=== PATIENT | female | born 1985 | race Caucasian/White ===

== ENCOUNTER 2016-10-01 21:16 | Emergency (ER) | payer OTHER ==
[2016-10-01] MEDS ORDERED: BACITRACIN 0.9 GM PACKET OINT TOPICAL ONE (21:45)
[2016-10-01 21:53] VITALS: RESP 20; TEMP 98.2
[2016-10-01] MEDS ORDERED: valACYclovir Tab 500 MG TAB PO ONE (22:01)
[2016-10-01] MEDS ORDERED: CEPHALEXIN 500 MG CAPSULE PO SCH (22:15)
--- NOTE | 2016-10-02 04:36 | PDOC ---
Lower Extremity Problem HPI - General Chief Complaint: Lower Extremity Problem/Injury Stated Complaint: Left leg wound Date Seen by Provider: 10/01/16 Time Seen by Provider: 21:25 Source: POSITIVE: Patient Exam Limitations: POSITIVE: No limitations, Clinical condition - History of Present Illness Initial Comments: The patient is a 31 year old female. She complaines of a 4 day history of a cluster of painful "sores" just distal to the medial aspect of the right knee. She has since developed erythema surroundinf these lesions and lymphangitis streaking ascending up from these lesions. Patient states thes lesions have been recurring about twice a year since 2008. Lesions seem to be precipitated by stress. She has had arthroscopic surgery to this knee. No fevers or chills. No mucosal lesions. Body Location Affected: REPORTS: Lower Extremity (R) Timing: REPORTS: Abrupt Duration: <1 week (approximately four days) Severity: Moderate Recent Injury: REPORTS: No Context of Injury: DENIES: Fall, Twist, Direct Blow, Incision, Burn, Crush, Stab , Prolonged Pressure on Ext, Other Location at Time of Onset: REPORTS: Home Quality: REPORTS: "Pain" Modifying Factors: REPORTS: Other (exacerbated by direct palpation) Associated Symptoms: DENIES: Chest Pain, Shortness of Breath, Rapid Heart Rate, Fainting, Other Similar Symptoms Previously: Yes (approximately twice a year since 2008) Recent Care Received: REPORTS: Denies Any Prior Injuries Related to Current Complaint?: No - Patient Home Medications Home Medications: Home Medications Acetaminophen [Tylenol] 325 mg PO PRN tab 03/30/14 Ibuprofen 1 tab PO PRN tab 01/19/15 Cephalexin [Keflex] 500 mg PO Q6H #38 cap 10/01/16 Valacyclovir HCl [Valtrex] 1,000 mg PO BID #13 tab 10/01/16 Valacyclovir HCl [Valtrex] 1,000 mg PO Q8H #20 tab 10/01/16 - Patient Allergies Allergies/Adverse Reactions: Allergies Allergy/AdvReac Type Severity Reaction Status Date / Time No Known Allergies Allergy Verified 10/01/16 21:23 Past Medical History - heen HEENT History: Denies History Cardiovascular History: Denies History Respiratory History: Denies History Gastrointestinal History: Denies History Genitourinary History: Denies History Endocrine History: Denies History Musculoskeletal History: Other (please comment) Additional Musculoskeletal History: Hx of bilateral knee scopes Neurological History: Seizures Blood Disorders: Denies History Psychiatric History: Denies History History of Sexually Transmitted Diseases: No Female Reproductive History: Denies History Obstetrical History: Denies History Cancer History: Denies History In Past Year Been Physically Harmed or Verbally Threatened: No History of MDRO: No History of Other Communicable Diseases: No Tobacco Use: Current Every Day Smoker Alcohol Use: Rarely Substance Use Type: None Previous Surgical History: No Significant Family History: No pertinent family hx Past Medical History Reviewed: Reviewed - No Changes ROS - Limitations ROS Limitations: No Limitations Constitution: REPORTS: Denies Symptoms Cardiovascular: REPORTS: Denies Cardiac Symptoms Respiratory: REPORTS: Denies Resp Symptoms Neurological: REPORTS: Denies Neuro Symptoms Gastrointestinal: REPORTS: Denies GI Symptoms Endocrine: REPORTS: Denies Symptoms Musculoskeletal: REPORTS: Denies MS Symptoms Genitourinary: REPORTS: Denies Symptoms Eyes: REPORTS: Denies Symptoms ENT: REPORTS: Denies Symptoms Skin: REPORTS: Skin Lesions (cluster of vesicular lesions just below medial aspect of right knee, very suggestive of HSV with associated surrounding cellulitis and lymphangitis) Lympathic: DENIES: Denies Lympathic Symptoms (lymphangitic streaking; see diagram) Immunologic: POSITIVE: Denies Symptoms Psychiatric: POSITIVE: Denies Psych Symptoms Lower Ext Problem Exam - General Appearance General Appearance: POSITIVE: Alert, Cooperative, No Acute Distress, No Evidence of Trauma - Extremities Lower Extremity: POSITIVE: Other (vesicular alan lesions with associated cellulitis and lymphangitis as above; see diagram) Joint Exam: POSITIVE: Joints Normal, Normal ROM, Normal Gait, Normal Weight Bearing Vascular: POSITIVE: No Vascular Compromise, Full Pulses, Equal Pulses - Neuro / Psych Neuro/Psych: POSITIVE: Sensation Normal, Motor Normal, Oriented to Person, Oriented to Place, Oriented to Time, 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 Nml, Pharynx Inspect. Nml, PERRL, EOMI - Respiratory / CVS Respiratory / CVS: POSITIVE: No Respiratory Distress, Breath Sounds Normal, Regular Rate/Rhythm, Heart Sounds Normal Peripheral Pulses: Radial (R): 2+, Radial (L): 2+ - Abdomen Abdomen: Soft: (All Quadrants), Normal Bowel Sounds: (All Quadrants), Denies Tenderness: (All Quadrants), No Splenomegaly: (All Quadrants), No Hepatomegaly: (All Quadrants), No Guarding: (All Quadrants), No Rebound: (All Quadrants), No Palpable Pulse: (All Quadrants), No Palpabale Mass: (All Quadrants), No Distention: (All Quadrants), No Rigidity: (All Quadrants) Images - Lower Extremities Lower Extremities: 1 - cluster of vesicles 2 - erythema and tenderness 3 - lymphangitis Lower Ext Problem Progress - Results Reviewed by me Lab Results:: herpes culter and aerobic bacterial cultures taken of unruffed vesicles - Patient's Progress Pain Medication Addressed: POSITIVE: Yes (recommended advil or tylenol) School/Work Release Addressed: POSITIVE: Not Applicable Re-Examine Time: 22:00 Re-Examine Comment: wound cleanses and Bacitracin dressing placed Status: POSITIVE: Unchanged - Consult Counseled: POSITIVE: Patient, RE: DX, RE: Need for F/U Patient Care Time - Estimated PCT Patient Care Time (In Minutes): 25 Vital Signs - Recent Vital Signs Vital Signs: Vital Signs (Last 8 hours) Temp Pulse Resp BP Pulse Ox 10/01/16 21:21 98.2 F 107 H 20 121/86 96 - VS Reviewed Vital Signs Reviewed: Yes Discharge Clinical Impression: Herpes, Lymphangitis Discharge Disposition: Discharged to Home Condition: Good Prescriptions / Orders: Cephalexin [Keflex] 500 mg PO Q6H #38 cap Valacyclovir HCl [Valtrex] 1,000 mg PO BID #13 tab Valacyclovir HCl [Valtrex] 1,000 mg PO Q8H #20 tab Patient Instructions Given at Discharge: Shingles (ED), Cellulitis (ED) Additional Instructions: I believe that you probably have a recurring viral herpetic infection, similar to shingles. You have secondary inflammation, which is probably bacterial, causing what is known as a cellulitis and lymphangitis, which is causing the red streak going up your left leg. I believe that we need to treat your primary viral infection along with your secondary bacterial infection. Please take Valtrex, one tablet every 8 hours for 7 days. Also take Keflex, one tablet every 6 hours for 10 days. Follow-up with your primary care provider. Return here anytime if condition worsens in any way. Follow Up With: NONE,NONE [Primary Care Provider] - (Instructions as above. Follow-up with your primary care provider. Return here anytime if condition worsens.)
[2016-10-03 19:06] LABS: HSV 1 PCR Negative (Negative); VARICELLA-ZOSTER SOURCE left leg (())
[2016-10-05 09:10] LABS: HSV 2 PCR Positive (Negative); VARICELLA ZOSTER PCR RESULT Negative (Negative)
== END 2016-10-01 22:17 | disposition home or self-care (01) ==
LOC: ER 21:16
DX: I89.1 Lymphangitis (principal); B00.89 Other herpesviral infection
CPT/HCPCS: 87070; 87205; 87529; 87798; 99282

== ENCOUNTER → 2016-11-29 | Outpatient (CLI) | payer OTHER | LOC: LAB 09:41 | PROVIDERS: ATTEND Physician Assistant Medical | DX: Z20.818 Contact with and (suspected) exposure to other bacterial communicable diseases (principal) | CPT/HCPCS: 87641 ==